=== PATIENT | female | born 1950 | race Caucasian/White ===

== ENCOUNTER → 2019-05-25 | Outpatient (CLI) | payer MEDICARE ==
[~2019-05-25] MED LIST: PLAVIX 75 MG TA75 M1
== END ==
LOC: M.RAD 09:54
DX: R05 Cough (principal); M48.54XA Collapsed vertebra, not elsewhere classified, thoracic region, initial encounter for fracture; M47.819 Spondylosis without myelopathy or radiculopathy, site unspecified; F17.201 Nicotine dependence, unspecified, in remission